=== PATIENT | male | born 1995 | race Hispanic/Latino ===

== ENCOUNTER 2019-02-10 21:31 | Emergency (ER) | payer OTHER ==
[~2019-02-10] VITALS: Ht 180.3 cm; Wt 97.5 kg
--- OUTSIDE RECORDS SUMMARY | 2019-02-10 23:02 | XMS ---
PreManage Notification: [place] [employer] Physician'S Aide Events No recent Security Events currently on file CRITERIA MET - REGISP CARE PROVIDERS ELVIN [facility] Current PHONE: Unknown Eliz Figueroa [facility] Care Current PHONE: Unknown Maryse has no Care Guidelines for this patient. [place] VISIT COUNT (12 MO.) 1 BATSHEVA Vasquez TOTAL 1 NOTE: Visits indicate total known visits. ED/UCC VISIT TRACKING (12 MO.) 02/10/2019 21:[address] [facility] OR TYPE: Emergency COMPLAINT: - FINGER LACERATION INPATIENT VISIT TRACKING (12 MO.) No inpatient visits to display in this time frame [email or web address]
== END 2019-02-10 22:52 | disposition home or self-care (01) ==
LOC: ED 21:31
PROC: 0XQQXZZ Repair Right Middle Finger, External Approach (ICD-10-PCS; principal; 2019-02-10)
DX: S61.212A Laceration without foreign body of right middle finger without damage to nail, initial encounter (principal); W26.8XXA Contact with other sharp object(s), not elsewhere classified, initial encounter
CPT/HCPCS: 12002; 90471; 90715; 99282-25